=== PATIENT | female | born 1965 | race Caucasian/White ===

== ENCOUNTER 2024-10-27 14:37 | Emergency (ER) | payer BC, SELFPAY ==
[2024-10-27 14:42] VITALS: BP 146/86; PULSE 85; TEMP 36.6; O2SAT 99; BMI 34.8
--- NOTE | 2024-10-27 15:02 | ED_ITS ---
HPI HPI - Extremity Injury (Lower) General Chief Complaint: Extremity Injury, Lower Stated Complaint: R KNEE PAIN Time Seen by Provider: 10/27/24 14:39 Source: patient Mode of arrival: Wheelchair Limitations: no limitations History of Present Illness HPI Narrative: Patient is a 59-year-old female presents to the ER with concerns of increased right knee pain and swelling. Patient states she twisted her knee the other day and has had increased pain since with the swelling she admits to having a longstanding history of arthritis which she has just tolerated she has taken Tylenol and Mobic in the past. She denies any recent fever, but was on steroids at the end of September for a sinus infection and swelling around her eye. The symptoms have resolved. She denies any calf pain or hip pain. She denies any direct fall on her knee but notes that she felt something shift when her knee twisted she has limited range of motion secondary to pain and swelling. Pt has a walker at home but is concerned concerned about returning to work on Wednesday. MD complaint: Reports knee injury Injury: Right: knee Place: Reports home Severity: moderate Relieving factors: Reports rest Exacerbating factors: Reports weight bearing Associated symptoms: Reports swelling and able to partially bear weight; Denies numbness or tingling Treatments prior to arrival: Reports NSAIDS and other (tylenol) Related Data Home Medications ?Medication ?Instructions ?Recorded ?Confirmed ezetimibe 10 mg tablet 10 mg PO DAILY 10/27/24 10/27/24 famotidine 20 mg tablet 20 mg PO BEDTIME 10/27/24 10/27/24 meloxicam 7.5 mg tablet 7.5 mg PO DAILY 10/27/24 10/27/24 olmesartan 5 mg tablet 5 mg PO DAILY 10/27/24 10/27/24 Previous Rx's ?Medication ?Instructions ?Recorded prednisone 20 mg tablet 40 mg (2 x 20 mg) PO ONCE 5 days 10/27/24 #10 tabs Allergies Allergy/AdvReac Type Severity Reaction Status Date / Time No Known Drug Allergies Allergy Verified 10/27/24 14:42 Opioid HPI Opioid Management Most Recent Pain and Opioid Data: Last Pain Scale 5 10/27/24 15:16 10/27/24 Last MAR Pain Assessment 10/27/24 15:16 Review of Systems ROS Constitutional Denies: fever, chills or change in weight Eyes Denies: change in vision Ears, nose, mouth, and throat Denies: throat pain or neck pain Cardiovascular Denies: chest pain, palpitations or edema Respiratory Denies: shortness of breath or cough Gastrointestinal Denies: abdominal pain, nausea or vomiting Genitourinary Denies: painful urination or urinary frequency Musculoskeletal Reports: joint pain (right knee) Integumentary/Breast Denies: rash Neurological Denies: headache Psychiatric Denies: anxiety Hematologic/Lymphatic Denies: easy bruising Exam Narrative Exam Narrative: Vital signs reviewed and nurse's notes. The patient is not hypoxic. General: Alert, no acute distress, patient resting comfortably Skin: warm, intact, no pallor noted Head: Normocephalic, atraumatic Eye: Normal conjunctiva, no exudates Respiratory: No acute distress, lungs CTA Musculoskeletal: No evidence of deformity to the right knee. There is mild amount of swelling consistent with knee effusion. There is no ecchymosis. No erythema or warmth noted. DP and PT pulses are intact 2+. Normal sensation, normal capillary refill less than 2 seconds. There is no cyanosis or mottling noted. The patient has tenderness to medial retinaculum and lateral joint line of the right knee. The patient has no significant pain with valgus or varus stressing slight laxity MCL with firm endpoint. Valgus deformity of the knee and lateral tracking patella. The patient has negative anterior drawer and Dragan testing. The patient was able to flex and extend although with pain full extension and 60 degrees of flexion limited by pain. Patient was able to straight leg raise despite pain. No tenderness noted to the 5th MT, midfoot, ankle or proximal fibular area. No hip pain with internal and external motion. There is no pain with calcaneal squeeze, Achilles tendon is intact and no defect is palpated. The patient has no pelvic instability. The patient has no shortening or rotation noted to the bilateral lower extremities. Neurological: alert and orient x4, normal sensory and motor observed, no foot drop. . Psychiatric: Cooperative Constitutional Vital Signs, click to edit/add: Last Vital Signs Temp 97.8 F 10/27/24 14:42 Pulse 85 10/27/24 14:42 Resp 18 10/27/24 14:42 BP 146/86 H 10/27/24 14:42 Pulse Ox 99 10/27/24 14:42 O2 Del Method Room Air 10/27/24 14:42 Course Vital Signs Vital signs: Vital Signs Temperature 97.8 F 10/27/24 14:42 Pulse Rate 85 10/27/24 14:42 Respiratory Rate 18 10/27/24 14:42 Blood Pressure 146/86 H 10/27/24 14:42 Pulse Oximetry 99 10/27/24 14:42 Oxygen Delivery Method Room Air 10/27/24 14:42 Temperature 97.8 F 10/27/24 14:42 Pulse Rate 85 10/27/24 14:42 Respiratory Rate 18 10/27/24 14:42 Blood Pressure 146/86 H 10/27/24 14:42 Pulse Oximetry 99 10/27/24 14:42 Oxygen Delivery Method Room Air 10/27/24 14:42 MDM - Extremity Injury (Lower) MDM Narrative Medical decision making narrative: Patient took Tylenol prior to arrival she has been on Mobic in the past she has no recent history of fever was on a steroid at the end of September for sinus symptoms. She has a knee exam concerning for arthritis with patellofemoral crepitus slight valgus deformity. She denies any fall but states she felt something shift in her knee when she was repositioning and subsequently twisted it. X-rays were performed as she has not had this evaluated in the past and we discussed the need to follow-up with orthopedics for reevaluation pending treatment over the weekend. She will focus on ice and elevation rest she has a walker to limit weightbearing on the right knee. 3 view right knee x-ray discussed with patient significant patellofemoral arthritis valgus deformity with severe [id number] articulation lateral joint line no visible fracture radiologist interpretation is pending. We discussed referral to orthopedics for further evaluation and management patient be placed on a prednisone burst through the weekend to see if it helps with her swelling she will continue to ice and elevate along with use of her walker to offload the knee and she may continue using her knee wrap. A note off work until Wednesday pending reevaluation with orthopedics The patient is to followup with primary care physician Dr. Gross in next 2-[address] Cooper ( orthopedics) Wednesday at noon. or to return to the emergency department should any of the signs or symptoms worsen or new symptoms develop. Patient had questions answered. The patient agrees with the following Diagnosis and Treatment plan and the patient will be discharged home. Discharge Plan Discharge Chief Complaint: Extremity Injury, Lower Clinical Impression: Acute pain of right knee, Effusion of right knee, Arthritis of knee, right Patient Disposition: Home, Self-Care Time of Disposition Decision: 15:23 Condition: Good Prescriptions / Home Meds: New prednisone 20 mg tablet 40 mg PO ONCE 5 Days Qty: 10 0RF Held meloxicam 7.5 mg tablet 7.5 mg PO DAILY Hold Instructions: Resume on 11/01/24. while on steroid No Action ezetimibe 10 mg tablet 10 mg PO DAILY famotidine 20 mg tablet 20 mg PO BEDTIME olmesartan 5 mg tablet 5 mg PO DAILY Print Language: Hungarian Instructions: Osteoarthritis (ED) Referrals: HAILEE GROSS DO [Primary Care Provider] - 1 week Jose Elias Cooper MD [Physician] - 10/30/24 12:00 pm
[2024-10-27] MEDS: HYDROCODONE/ACET 5-325 MG TABLET 1 TAB PO (15:16)
[2024-10-27] MEDS: KETOROLAC TROMETHAMINE 60 MG/2 ML VIAL IM (15:16)
[2024-10-27] MEDS: PREDNISONE 20 MG TABLET 40 MG PO (15:16)
== END 2024-10-27 15:47 | disposition home or self-care (01) ==
PROVIDERS: Emergency Provider Emergency Medicine; PCP Internal Medicine
DX: M25.461 Effusion, right knee (principal); M17.11 Unilateral primary osteoarthritis, right knee; M25.561 Pain in right knee
CPT/HCPCS: 73562; 96372; 99284; J1885; J7512